=== PATIENT | female | born 1995 | race Caucasian/White ===

== ENCOUNTER 2017-05-24 20:48 | Emergency (ER) | payer OTHER ==
[~2017-05-24] VITALS: Ht 162.6 cm; Wt 104.3 kg
[~2017-05-24 20:48] MED LIST: ACET325T9 PO; CYCL-331 PO; ENOX40DI SQ; Enoxaparin Sodium SQ; FERROUS FUM PO; HYDR-2758 PO; HYDR-971 PO; Hydrocodone Bit/Acetaminophen PO; PNV11TAB PO; PREN1TAB58 PO; PRENATAL VIT PO; [UNRECOGNIZED DRUG - OTHER] PO
--- NOTE | 2017-05-24 20:52 | PHYS DOC ---
Past History Past Medical History: DVT, Other Past Surgical History: Cholecystectomy Smoking: Non-smoker Alcohol Use: Rarely Drug Use: None Adult General Chief Complaint Chief Complaint: dizziness, short of breath [facility] HPI Patient is a 21 year old female who presents with not feeling well over the last 24 hours. She states she feel short of breath when she is up ambulating and feels a tightness in her chest. She states it only happens when she's tried to ambulate a long distance. She's felt lightheaded. She called her primary care physician who states that she likely has a virus. She states yesterday she feel constipated but the days had normal bowel movements. She did just stop taking her Depo shots. She states she could be a chance she is . She denies smoking history. She denies any chest pain or shortness of breath currently, she denies any leg pain or swelling. Review of Systems Review of Systems Constitutional: Denies fever or chills [] Eyes: Denies change in visual acuity, redness, or eye pain [] HENT: Denies nasal congestion or sore throat [] Respiratory: Denies cough, positive shortness of breath with ambulation Cardiovascular: No additional information not addressed in HPI [] GI: Denies abdominal pain, nausea, vomiting, bloody stools or diarrhea [] : Denies dysuria or hematuria [] Musculoskeletal: Denies back pain or joint pain [] Integument: Denies rash or skin lesions [] Neurologic: Denies headache, focal weakness or sensory changes [] Endocrine: Denies polyuria or polydipsia [] Allergies Allergies Allergies Coded Allergies Type Severity Reaction Last Updated Verified Milk Containing Products Allergy Intermediate 02/11/14 Yes iodine Allergy Intermediate 02/11/14 Yes latex Allergy Intermediate 02/11/14 Yes Physical Exam Physical Exam Constitutional: Well developed, well nourished, no acute distress, non-toxic appearance. [] HENT: Normocephalic, atraumatic, bilateral external ears normal, oropharynx moist, no oral exudates, nose normal. [] Eyes: PERRLA, EOMI, conjunctiva normal, no discharge. [] Neck: Normal range of motion, no tenderness, supple, no stridor. [] Cardiovascular:Heart rate regular rhythm, no murmur [] Lungs & Thorax: Bilateral breath sounds clear to auscultation [] Abdomen: Bowel sounds normal, soft, no tenderness, no masses, no pulsatile masses. [] Skin: Warm, dry, no erythema, no rash. [] Back: No tenderness, no CVA tenderness. [] Extremities: No tenderness, no cyanosis, no clubbing, ROM intact, no edema. [] Neurologic: Alert and oriented X 3, normal motor function, normal sensory function, no focal deficits noted. [] Psychologic: Affect normal, judgement normal, mood normal. [] EKG EKG [] Radiology/Procedures Radiology/Procedures [place] [id number] IMAGING REPORT Signed PATIENT: SIRISHA ISSA ACCOUNT: [id number] : 1995 LOCATION: ER AGE: 21 SEX: F EXAM STATUS: REG ER ORD. PHYSICIAN: ANNITA LIMON MD REASON: r/o PE PROCEDURE: CT ANGIOGRAPHY CHEST CT angiogram of the chest with contrast: Reason for examination: Short of air. Elevated d-dimer. History of factor 5. Helical images were obtained through the chest with intravenous administration of 75 cc Omnipaque 300. 3-D MIPS reconstruction was performed in sagittal and coronal planes. The patient had history of iodine allergy and was premedicated for the examination. Exposure: One or more of the following individualized dose reduction techniques were utilized for this examination: 1. Automated exposure control 2. Adjustment of the mA and/or kV according to patient size 3. Use of iterative reconstruction technique. No abnormality seen at the thyroid gland. The trachea and mainstem bronchi show no intraluminal lesions. No abnormality seen at the esophagus. The thoracic aorta shows no aneurysmal dilatation or dissection. The heart size is normal with no pericardial effusion. There is suggestion of a small focal nonocclusive thrombus proximally in the left lower lobe artery which would be consistent with a small pulmonary embolus. No other definite pulmonary emboli identified. Lung massey show no infiltrates or pleural effusions. No abnormality seen at the visualized portion of the liver, spleen, adrenal glands or pancreas. The gallbladder surgically absent. IMPRESSION: Single small nonocclusive thrombus suggested in the proximal left lower lobe artery. No other focal abnormality seen in the chest. Electronically signed by: Rebecca Sylvester MD (05/25/2017 1:21 AM) [facility] DICTATED AND SIGNED BY: REBECCA SYLVESTER MD DATE: 05/25/17 011 CC: ANNITA LIMON MD; LUKAS BARRERA ~ Impressions: Pulmonary embolism Factor V Leiden deficiency UTI Hypokalemia Course & Med Decision Making Course & Med Decision Making Pertinent Labs and Imaging studies reviewed. (See chart for details) test was reported by nursing staff as negative. Patient states she is supposed to be on Xeralto, but hasn't been on for the last 2 days because she ran out of it and she hasn't been by the pharmacy to pick it up. She has a small pulmonary embolism that's nonocclusive. She's being restarted back on Xarelto 20 mg, one dose given in the ER, in addition to her potassium being replaced and one dose of antibiotic for UTI. She received a liter of normal saline and her heart rate improved from low 100s to in the 80s. Her symptoms have resolved. She's being discharged home at this time. Return precautions given. She is instructed follow-up with her primary care physician. She is instructed not to miss any more doses of her Xarelto. Dragon Disclaimer Dragon Disclaimer This chart was dictated in whole or in part using Voice Recognition software in a busy, high-work load, and often noisy Emergency Department environment. It may contain unintended and wholly unrecognized errors or omissions. Departure Departure: Impression: Primary Impression: Pulmonary embolism Disposition: 01 HOME, SELF-CARE Condition: STABLE Referrals: PCP,NO (PCP) Patient Instructions: Pulmonary Embolus Additional Instructions: You have a small blood clot in your left lung. Your given a dose of Xeralto. You will need to get her prescription filled and continue taking it. Very important to not miss any doses. You will also have a small bladder infection that you'll need to have antibiotic for the next 3 days. Your potassium level slightly low and this was also replaced. Giving discharged home. Please follow- up to primary care physician. If you have troubles getting her prescription filled please return back to the ER or call your primary care physician for help. Scripts Sulfamethoxazole/Trimethoprim (BACTRIM 400-80 MG TABLET) 1 Each Tablet 1 TAB PO BID, #6 TAB Prov: ANNITA LIMON MD 05/25/17 Problem Qualifiers Primary Impression: Pulmonary embolism Pulmonary embolism type: other Chronicity: unspecified Acute cor pulmonale presence: without acute cor pulmonale Qualified Codes: I26.99 - Other pulmonary embolism without acute cor pulmonale ANNITA LIMON MD May 24, 2017 20:52
[2017-05-24 22:30] LABS: BASO % 1 % (0-3); EOS # 0.1 x10^3/uL (0.0-0.7); EOS % 1 % (0-3); HEMATOCRIT 37.6 % (36.0-47.0); HEMOGLOBIN 12.9 g/dL (12.0-15.5); LYMPH # 2.1 x10^3/uL (1.0-4.8); LYMPH % 26 % (24-48); MEAN CORPUSCULAR HEMOGLOBIN 27 pg (25-35); MEAN CORPUSCULAR HGB CONC 34 g/dL (31-37); MEAN CORPUSCULAR VOLUME 78 fL (79-100); MONO # 0.9 x10^3/uL (0.0-1.1); MONO % 12 % (0-9); NEUT # 4.8 x10^3uL (1.8-7.7); NEUT % 61 % (31-73); PLATELET COUNT 180 x10^3/uL (140-400); RED CELL DISTRIBUTION WIDTH 14.8 % (11.5-14.5); WHITE BLOOD COUNT 7.9 x10^3/uL (4.0-11.0)
[2017-05-24 22:40] LABS: ALBUMIN 3.6 g/dL (3.4-5.0); ALBUMIN/GLOBULIN RATIO 0.9 (1.0-1.7); CALCIUM 8.5 mg/dL (8.5-10.1); CREATININE 0.6 mg/dL (0.6-1.0); GFR 123.9; POTASSIUM 3.4 mmol/L (3.5-5.1); TOTAL BILIRUBIN 0.3 mg/dL (0.2-1.0); TOTAL PROTEIN 7.7 g/dL (6.4-8.2)
[2017-05-24] MEDS ORDERED: methylPREDNISolone SOD SUCC PF 125 MG/2 ML VIAL. IV ONE (23:30)
[2017-05-24] MEDS ORDERED: FAMOTIDINE 20 MG/2 ML VIAL IVP ONE (23:30)
[2017-05-24] MEDS ORDERED: diphenhydrAMINE 50 MG/ML VIAL IVP ONE (23:30)
[2017-05-24 23:33] LABS: BACTERIA,URINE MOD /HPF (0-FEW); BILIRUBIN,URINE NEG (NEG); CLARITY,URINE CLOUDY; COLOR,URINE YELLOW; GLUCOSE,URINE NEG (NEG); NITRITE,URINE NEG (NEG); RBC,URINE OCC /HPF (0-2); SQUAMOUS EPITHELIAL CELL,UR FEW /LPF; UROBILINOGEN,URINE 0.2 mg/dL (0.2 mg/dL)
[2017-05-24] MEDS ORDERED: IOHEXOL 300 MG/ML 75 ML VIAL. IV ONE (23:45)
[2017-05-25] MEDS ORDERED: IV NORMAL SALINE 1,000ML 1,000 ML IV ONE (00:30)
--- NOTE | 2017-05-25 01:24 | RAD ---
CT angiogram of the chest with contrast: Reason for examination: Short of air. Elevated d-dimer. History of factor 5. Helical images were obtained through the chest with intravenous administration of 75 cc Omnipaque 300. 3-D MIPS reconstruction was performed in sagittal and coronal planes. The patient had history of iodine allergy and was premedicated for the examination. Exposure: One or more of the following individualized dose reduction techniques were utilized for this examination: 1. Automated exposure control 2. Adjustment of the mA and/or kV according to patient size 3. Use of iterative reconstruction technique. No abnormality seen at the thyroid gland. The trachea and mainstem bronchi show no intraluminal lesions. No abnormality seen at the esophagus. The thoracic aorta shows no aneurysmal dilatation or dissection. The heart size is normal with no pericardial effusion. There is suggestion of a small focal nonocclusive thrombus proximally in the left lower lobe artery which would be consistent with a small pulmonary embolus. No other definite pulmonary emboli identified. Lung massey show no infiltrates or pleural effusions. No abnormality seen at the visualized portion of the liver, spleen, adrenal glands or pancreas. The gallbladder surgically absent. IMPRESSION: Single small nonocclusive thrombus suggested in the proximal left lower lobe artery. No other focal abnormality seen in the chest. Electronically signed by: Rebecca Roberson MD (05/25/2017 1:21 AM) [place] [id number]
[2017-05-25 01:43] VITALS: BP 115/64
[2017-05-25] MEDS ORDERED: SULF1TAB23 PO (01:46)
[2017-05-25] MEDS ORDERED: SMZ/TMP 800/160MG TABLET. PO ONE (02:00)
[2017-05-25] MEDS ORDERED: POTASSIUM CHLORIDE 20 MEQ TABLET.ER. PO ONE (02:00)
[2017-05-25] MEDS ORDERED: RIVAROXABAN 10 MG TABLET. PO ONE (02:15)
== END 2017-05-25 02:10 | disposition home or self-care (01) ==
LOC: ER 20:48
DX: I26.99 Other pulmonary embolism without acute cor pulmonale (principal); E87.6 Hypokalemia; N39.0 Urinary tract infection, site not specified; D68.51 Activated protein C resistance; Z90.49 Acquired absence of other specified parts of digestive tract; Z91.041 Radiographic dye allergy status; Z91.040 Latex allergy status; Z91.011 Allergy to milk products
CPT/HCPCS: 36415; 71275; 80053; 81001; 81025; 82550; 84484; 85025; 85379; 87086; 96361; 96374; 96375; 99285; J1200; J2930; Q9967; S0028; J7030

== ENCOUNTER 2017-06-01 09:42 | Emergency (ER) | payer OTHER ==
[~2017-06-01 09:42] MED LIST changes: +SULF1TAB23 PO
[2017-06-01 10:27] LABS: BACTERIA,URINE FEW /HPF (0-FEW); BILIRUBIN,URINE NEG (NEG); CLARITY,URINE HAZY; COLOR,URINE YELLOW; GLUCOSE,URINE NEG (NEG); NITRITE,URINE NEG (NEG); SQUAMOUS EPITHELIAL CELL,UR FEW /LPF; UROBILINOGEN,URINE 0.2 mg/dL (0.2 mg/dL)
--- NOTE | 2017-06-01 10:58 | PHYS DOC ---
General Chief Complaint: dysuria Stated Complaint: cough, dark urine Time Seen by MD: 10:01 Source: patient, family Exam Limitations: no limitations Problems: History of Present Illness Initial Comments Patient is a 21-year-old female who comes to the ED with her significant other both with similar complaints. The 2 of them are seen in different exam rooms but both do give me verbal consent to speak with the other freely. Patient has history of STI she states it was treated. She has had some burning with urination and suprapubic discomfort no fever chills sweats or myalgias no nausea vomiting no bowel changes her appetite has been intact. She denies any pain with intercourse or vaginal discharge and states she has also had a dry cough. She saw her primary care doctor 2 days ago and states she received a good bill of health. She appears to be very nervous and she and her spouse both incriminate the other as possibly passing and STI to them. This was not revealed to me initially only after infection was noted in each of their urine and they had artery received antibiotics. Patient's heart rate is 102 bpm initially however it does resolve after she settles down. She denies any chest pain trouble breathing active bleeding she has history of factor V deficiency and STI. She and her significant other have 4 children together although they have an open relationship and from discussion it appears the have a relationship to procreate and raise children. Otherwise her ED vitals are stable. She had her spouse are vague historians and are not forthcoming until after infection is noted in each his urine and they have received antibiotics. Timing/Duration: unsure Severity: mild Modifying Factors: improves with other Associated Symptoms: cough, other Allergies: Coded Allergies: Milk Containing Products (Verified Allergy, Intermediate, 02/11/14) iodine (Verified Allergy, Intermediate, 02/11/14) latex (Verified Allergy, Intermediate, 02/11/14) Past Medical History Medical History: GERD, other (factor V deficiency, STI) Surgical History: cholecystectomy Family History Significant Family History: no pertinent family hx Social History Smoker: non-smoker Alcohol: none Drugs: none Review of Systems Constitutional: denies chills, denies diaphoresis, denies fever, denies malaise Respiratory: denies cough, denies shortness of breath Cardiovascular: denies chest pain, denies edema, denies palpitations, denies syncope Gastrointestinal: denies abdominal pain, denies diarrhea, denies nausea, denies vomiting Genitourinary: see HPI Musculoskeletal: denies back pain, denies joint swelling, denies neck pain Psychiatric/Neurological: denies headache, denies numbness, denies paresthesia Hematologic/Lymphatic: see HPI Physical Exam General Appearance: WD/WN, no apparent distress (nervous) Eyes: bilateral eye normal inspection, bilateral eye PERRL, bilateral eye EOMI Ear, Nose, Throat: hearing grossly normal, normal ENT inspection Neck: non-tender, supple Respiratory: chest non-tender, normal breath sounds Cardiovascular: normal peripheral pulses, regular rate, rhythm Gastrointestinal: normal bowel sounds, non tender (mild suprapubic tenderness negative Malone negative McBurney no rebound guarding or masses noted bowel sounds are normal), soft Rectal: deferred ( deferred) Back: no CVA tenderness, no vertebral tenderness Extremities: non-tender, normal inspection 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 Patient is treated with Rocephin and Zithromax based upon history and findings with her significant other who is being seen in another exam room. She is agreeable and expresses agreement and understanding with treatment plan. Departure Time of Disposition: 10:57 Disposition: 01 HOME, SELF-CARE Diagnosis: urethritis Condition: GOOD Patient Instructions: Urethritis, Adult Additional Instructions: No sexual activity until follow-up with your doctor. Notify any sexual contacts of the possible need for testing. Have them follow- up with their doctor. Aggressive hydration to prevent dehydration. No driving or operating machinery while under the influence of sedative pain medications. You received Rocephin and Zithromax in the emergency department which should resolve presumed gonococcal or chlamydial infection. You will need to follow-up with your doctor for a recheck to ensure urine infection has cleared and to discuss HIV and other testing. Follow-up with your doctor in 3-5 days. Take these discharge instructions with you to that appointment. Return to ED with new or changing symptoms. PHAM LITTLE DO Jun 01, 2017 10:58
[2017-06-01] MEDS ORDERED: AZITHROMYCIN 1 GM PACKET PO ONE (11:00)
[2017-06-01] MEDS ORDERED: PHENAZOPYRIDINE 100 MG TABLET. PO ONE (11:00)
[2017-06-01] MEDS ORDERED: cefTRIAXone IM 1 GM VIAL IM ONE (11:00)
[2017-06-01 11:25] VITALS: BP 114/67
== END 2017-06-01 11:27 | disposition home or self-care (01) ==
LOC: ER 09:42
DX: N34.2 Other urethritis (principal); K21.9 Gastro-esophageal reflux disease without esophagitis; D68.2 Hereditary deficiency of other clotting factors; Z91.041 Radiographic dye allergy status; Z91.040 Latex allergy status; Z91.011 Allergy to milk products
CPT/HCPCS: 81001; 87086; 96372; 99284; J0456; J0696

== ENCOUNTER 2021-01-28 11:25 | Emergency (ER) | payer MEDICAID, OTHER ==
[~2021-01-28] VITALS: Ht 162.6 cm; Wt 110.5 kg
[~2021-01-28 11:25] MED LIST changes: +HYDR-2155 PO; -HYDR-2758 PO; +HYDR-3165 PO; -HYDR-971 PO
[2021-01-28 12:09] VITALS: BP 114/67
[2021-01-28 12:24] LABS: BASO # 0.1 x10^3/uL (0.0-0.2); BASO % 1 % (0-3); EOS # 0.1 x10^3/uL (0.0-0.7); EOS % 1 % (0-3); HEMATOCRIT 36.7 % (36.0-47.0); HEMOGLOBIN 12.6 g/dL (12.0-15.5); LYMPH # 2.1 x10^3/uL (1.0-4.8); LYMPH % 17 % (24-48); MEAN CORPUSCULAR HEMOGLOBIN 28 pg (25-35); MEAN CORPUSCULAR HGB CONC 34 g/dL (31-37); MEAN CORPUSCULAR VOLUME 83 fL (79-100); MONO # 0.7 x10^3/uL (0.0-1.1); MONO % 5 % (0-9); NEUT # 9.6 x10^3uL (1.8-7.7); NEUT % 77 % (31-73); PLATELET COUNT 189 x10^3/uL (140-400); RED BLOOD COUNT 4.42 x10^6/uL (3.50-5.40); RED CELL DISTRIBUTION WIDTH 14.8 % (11.5-14.5); WHITE BLOOD COUNT 12.5 x10^3/uL (4.0-11.0)
[2021-01-28 12:34] LABS: CALCIUM 9.3 mg/dL (8.5-10.1); CREATININE 0.5 mg/dL (0.6-1.0); POTASSIUM 3.5 mmol/L (3.5-5.1)
[2021-01-28 13:03] LABS: BACTERIA,URINE MANY /HPF (0-FEW); BILIRUBIN,URINE NEG (NEG); CLARITY,URINE TURBID; COLOR,URINE AMBER; GLUCOSE,URINE NEG (NEG); NITRITE,URINE POS (NEG); SQUAMOUS EPITHELIAL CELL,UR MANY /LPF; WBC,URINE >40 /HPF (0-4)
--- NOTE | 2021-01-28 13:18 | RAD ---
EXAM: US OB Limited CLINICAL HISTORY: Reason: VAG BLEEDING AND CRAMPING COMPARISON: None available. TECHNIQUE: Limited transabdominal ultrasound of the uterus was performed. FINDINGS: NUMBER: Single POSITION: breech PLACENTA: Location: Anterior Cord type: 3 vessel cord. ANATOMY: HEART RATE: 160.00 (beats per minute) COMMENTS: Detailed evaluation of anatomy not performed on this limited ultrasound. Current measurements are: BPD - 4.42 = 19w3d HC -16.85 = 19w3d AC - 13.91 = 19w2d FL - 2.93 = 19w0d Estimated weight: 280 g. ANTONIO: 18.2 cm. MATERNAL ANATOMY CERVIX Length (cm): 4.8 UTERUS: No abnormalities seen. Placenta appears normal without appreciable hemorrhage. OVARIES/ADNEXAE: Ovaries not visualized. No adnexal mass. CUL-DE-SAC: No fluid. HISTORICAL DATES Last menstrual period: 09/16/2020 CALCULATED DATES EGA (LMP): 19 weeks 2 day RAISA (LMP): 06/23/2021 EGA (US): 19 weeks 2 day RAISA (US): 06/22/2021 IMPRESSION: 1. Single living intrauterine in breech position. heart rate 160 bpm. 2. Estimated gestational age by ultrasound 19 weeks, 2 days. RAISA by ultrasound 06/22/2021. Electronically signed by: Stacy Contreras MD (01/28/2021 1:15 PM) [id number]
[2021-01-28] MEDS ORDERED: CEPH500C PO (13:23)
--- NOTE | 2021-01-28 13:23 | PHYS DOC ---
Past History Past Medical History: Other Additional Past Medical Histor: factor five Past Surgical History: Cholecystectomy, Other Smoking: Non-smoker Alcohol Use: None Drug Use: None Adult General Chief Complaint Chief Complaint: VAGINAL BLEEDING HPI HPI Patient is a 25-year-old G9, P4 female who "thinks" she is 20 weeks based on first day of last menstrual period September 16 presenting for vaginal bleeding. States she found out incidentally about during an ER visit several weeks ago. Has been living at a assisted house ever since and has established with outpatient EMERGENCY OPERATOR for which patient reports having good access to care. States she had "a lot" of bright red vaginal bleeding yesterday that was spontaneous in nature without any known inciting event, trauma or other exposure. This was painless, only sided slight dysuria. Reports today having some mild spotting and only had to change her pad once. Nonetheless bleeding concerned her prompting her to come in for evaluation Review of Systems Review of Systems Fourteen body systems of review of systems have been reviewed. See HPI for pertinent positives and negative responses, other oliveros all other systems are negative, non-pertinent or non-contributory Allergies Allergies Allergies Coded Allergies Type Severity Reaction Last Updated Verified Milk Containing Products Allergy Intermediate 02/11/14 Yes iodine Allergy Intermediate 02/11/14 Yes latex Allergy Intermediate 02/11/14 Yes Physical Exam Physical Exam Constitutional: Well developed, well nourished, no acute distress, non-toxic appearance. HENT: Normocephalic, atraumatic, bilateral external ears normal, oropharynx moist with poor dentition, no oral exudates, nose normal. Eyes: PERRLA, EOMI, conjunctiva normal, no discharge. Neck: Normal range of motion, no tenderness, supple, no stridor. Cardiovascular: Heart rate regular, sinus rhythm, no murmurs rubs or gallops Lungs & Thorax: Bilateral breath sounds clear to auscultation Abdomen: Bowel sounds normal, soft and gravid, no tenderness, no masses, no pulsatile masses. Nonsurgical abdomen, no peritoneal signs Skin: Warm, dry, no erythema, no rash. Back: No tenderness, no CVA tenderness. Extremities: No tenderness, no cyanosis, no clubbing, ROM intact, no edema. Pain patch present on left upper extremity Neurologic: Alert and oriented X 3, grossly normal motor & sensory function, no focal deficits noted. Psychologic: Affect normal, judgement normal, mood normal. Current Patient Data Vital Signs Vital Signs Date Time Temp Pulse Resp B/P (MAP) Pulse Ox O2 Delivery O2 Flow Rate FiO2 01/28/21 12:09 114/67 (83) Vital Signs Date Time Temp Pulse Resp B/P (MAP) Pulse Ox O2 Delivery O2 Flow Rate FiO2 01/28/21 12:09 114/67 (83) Lab Results Laboratory Tests Test 01/28/21 12:06 01/28/21 12:11 White Blood Count 12.5 x10^3/uL (4.0-11.0) H Red Blood Count 4.42 x10^6/uL (3.50-5.40) Hemoglobin 12.6 g/dL (12.0-15.5) Hematocrit 36.7 % (36.0-47.0) Mean Corpuscular Volume 83 fL (79-100) Mean Corpuscular Hemoglobin 28 pg (25-35) Mean Corpuscular Hemoglobin Concent 34 g/dL (31-37) Red Cell Distribution Width 14.8 % (11.5-14.5) H Platelet Count 189 x10^3/uL (140-400) Neutrophils (%) (Auto) 77 % (31-73) H Lymphocytes (%) (Auto) 17 % (24-48) L Monocytes (%) (Auto) 5 % (0-9) Eosinophils (%) (Auto) 1 % (0-3) Basophils (%) (Auto) 1 % (0-3) Neutrophils # (Auto) 9.6 x10^3uL (1.8-7.7) H Lymphocytes # (Auto) 2.1 x10^3/uL (1.0-4.8) Monocytes # (Auto) 0.7 x10^3/uL (0.0-1.1) Eosinophils # (Auto) 0.1 x10^3/uL (0.0-0.7) Basophils # (Auto) 0.1 x10^3/uL (0.0-0.2) Maternal Serum HCG Beta Subunit 56324 mIU/mL (0-6) H Sodium Level 140 mmol/L (136-145) Potassium Level 3.5 mmol/L (3.5-5.1) Chloride Level 106 mmol/L (98-107) Carbon Dioxide Level 21 mmol/L (21-32) Anion Gap 13 (6-14) Blood Urea Nitrogen 5 mg/dL (7-20) L Creatinine 0.5 mg/dL (0.6-1.0) L Estimated GFR (Cockcroft-Gault) 148.0 Glucose Level 88 mg/dL (70-99) Calcium Level 9.3 mg/dL (8.5-10.1) Urine Collection Type Unknown Urine Color [place] Urine Clarity Turbid Urine pH 6.0 Urine Specific [place] >=1.030 Urine Protein 100 mg/dl (NEG-TRACE) Urine Glucose (UA) Neg mg/dL (NEG) Urine Ketones (Stick) Neg mg/dL (NEG) Urine Blood Large (NEG) Urine Nitrite Pos (NEG) Urine Bilirubin Neg (NEG) Urine Urobilinogen Dipstick 1.0 mg/dL (0.2 mg/dL) Urine Leukocyte Esterase Small (NEG) Urine RBC 11-20 /HPF (0-2) Urine WBC >40 /HPF (0-4) Urine Squamous Epithelial Cells Many /LPF Urine Bacteria Many /HPF (0-FEW) EKG EKG [] Radiology/Procedures Radiology/Procedures EXAM: US OB Limited CLINICAL HISTORY: Reason: VAG BLEEDING AND CRAMPING COMPARISON: None available. TECHNIQUE: Limited transabdominal ultrasound of the uterus was performed. FINDINGS: NUMBER: Single POSITION: breech PLACENTA: Location: Anterior Cord type: 3 vessel cord. ANATOMY: HEART RATE: 160.00 (beats per minute) COMMENTS: Detailed evaluation of anatomy not performed on this limited ultrasound. Current measurements are: BPD - 4.42 = 19w3d HC -16.85 = 19w3d AC - 13.91 = 19w2d FL - 2.93 = 19w0d Estimated weight: 280 g. ANTONIO: 18.2 cm. MATERNAL ANATOMY CERVIX Length (cm): 4.8 UTERUS: No abnormalities seen. Placenta appears normal without appreciable hemorrhage. OVARIES/ADNEXAE: Ovaries not visualized. No adnexal mass. CUL-DE-SAC: No fluid. HISTORICAL DATES Last menstrual period: 09/16/2020 CALCULATED DATES EGA (LMP): 19 weeks 2 day RAISA (LMP): 06/23/2021 EGA (US): 19 weeks 2 day RAISA (US): 06/22/2021 IMPRESSION: 1. Single living intrauterine in breech position. heart rate 160 bpm. 2. Estimated gestational age by ultrasound 19 weeks, 2 days. RAISA by ultrasound 06/22/2021. Electronically signed by: Stacy Contreras MD (01/28/2021 1:15 PM) [id number] Heart Score C/O Chest Pain: No Risk Factors: Risk Factors: DM, Current or recent (<one month) smoker, HTN, HLP, family history of CAD, obesity. Risk Scores: Risk Factors: DM, Current or recent (<one month) smoker, HTN, HLP, family history of CAD, obesity. Course & Med Decision Making Course & Med Decision Making Discussed with the patient all findings and diagnostic testing. I discussed most likely diagnosis of UTI in female in second trimester. Joint decision made to treat with Keflex. Based on clinical examination and findings today, joint decision to defer any further diagnostic work-up in ER setting. Patient has good access to EMERGENCY OPERATOR in outpatient setting and so, I stressed need for close outpatient follow-up to review today's ER visit. Strict return precautions were also discussed at length with good understanding by patient. Patient voiced understanding and agreement with the plan. Patient knows to come back for repeat evaluation if concerning signs or symptoms present prior to outpatient follow-up. Hemodynamically stable, ambulatory and well-appearing at time of disposition. Dragon Disclaimer Dragon Disclaimer This electronic medical record was generated, in whole or in part, using a voice recognition dictation system. Departure Departure: Impression: Primary Impression: UTI (urinary tract infection) in in second trimester Additional Impressions: and not yet delivered in second trimester Factor 5 Leiden mutation, heterozygous Disposition: HOME / SELF CARE / HOMELESS Condition: STABLE Referrals: PCP,NO (PCP) Patient Instructions: ABCs of , - Second Trimester Scripts Cephalexin (CEPHALEXIN) 500 Mg Capsule 1 CAP PO QID for UTI for 10 Days, #39 CAP Prov: MAGALY SMITH DO 01/28/21 Problem Qualifiers MAGALY SMITH DO Jan 28, 2021 13:23
[2021-01-28] MEDS ORDERED: CEPHALEXIN 250 MG CAPSULE ONE (13:25)
[2021-01-28] MEDS ORDERED: CEPHALEXIN 250 MG CAPSULE PO ONE (13:30)
== END 2021-01-28 13:34 | disposition home or self-care (01) ==
LOC: ER 11:25
DX: O23.42 Unspecified infection of urinary tract in pregnancy, second trimester (principal); O99.112 Other diseases of the blood and blood-forming organs and certain disorders involving the immune mechanism complicating pregnancy, second trimester; D68.51 Activated protein C resistance; Z3A.19 19 weeks gestation of pregnancy; Z91.040 Latex allergy status; Z90.49 Acquired absence of other specified parts of digestive tract
CPT/HCPCS: 36415; 76815; 80048; 81001; 84702; 85025; 87086; 99284-25

== ENCOUNTER 2021-06-08 16:08 | Emergency (ER) | payer MEDICAID ==
[~2021-06-08] VITALS: Ht 162.6 cm; Wt 110.5 kg
[~2021-06-08 16:08] MED LIST changes: +CEPH500C PO
--- NOTE | 2021-06-08 16:45 | EKG ---
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
[2021-06-08 17:18] VITALS: BP 112/60
[2021-06-08 17:31] LABS: BASO % 1 % (0-3); EOS # 0.2 x10^3/uL (0.0-0.7); EOS % 3 % (0-3); HEMATOCRIT 35.8 % (36.0-47.0); HEMOGLOBIN 11.8 g/dL (12.0-15.5); LYMPH # 2.5 x10^3/uL (1.0-4.8); LYMPH % 28 % (24-48); MEAN CORPUSCULAR HEMOGLOBIN 27 pg (25-35); MEAN CORPUSCULAR HGB CONC 33 g/dL (31-37); MEAN CORPUSCULAR VOLUME 82 fL (79-100); MONO # 0.7 x10^3/uL (0.0-1.1); MONO % 8 % (0-9); NEUT # 5.3 x10^3uL (1.8-7.7); NEUT % 60 % (31-73); PLATELET COUNT 205 x10^3/uL (140-400); RED BLOOD COUNT 4.38 x10^6/uL (3.50-5.40); RED CELL DISTRIBUTION WIDTH 14.6 % (11.5-14.5); WHITE BLOOD COUNT 8.7 x10^3/uL (4.0-11.0)
--- NOTE | 2021-06-08 17:39 | PHYS DOC ---
Past History Past Medical History: Other Additional Past Medical Histor: factor five (MARK YOUNG APRN) Past Surgical History: Cholecystectomy, Other (MARK YOUNG APRN) Smoking: Non-smoker Alcohol Use: Rarely Drug Use: None (MARK YOUNG APRN) General Adult EDM: Chief Complaint: POST-OP PROBLEM HPI: HPI: Patient is a 25-year-old female presents with vaginal bleeding. Patient states she delivered a baby via on 05/05. Patient states that today she was at her grandmother's when she started bleeding heavily. Patient states she went through one pad and also one tampon. Patient reports that bleeding has stopped and only had 2 episodes of bleeding. "I came to the emergency room because I got a little dizzy when I was bleeding". Patient denies receiving any care. Patient states that she does have an appointment scheduled for Monday with the OB who delivered her baby. Patient denies abdominal pain. Afebrile. (MARK YOUNG APRN) Review of Systems: Review of Systems: ROS At least 10 ROS systems have been reviewed and are negative except as documented in the HPI. General: Negative except as outlined in HPI above. Skin: Negative except as outlined in HPI above. HEENT: Negative except as outlined in HPI above. Neck: Negative except as outlined in HPI above. Respiratory: Negative except as outlined in HPI above.. Cardiovascular: Negative except as outlined in HPI above. Abdomen: Negative except as outlined in HPI above. : Negative except as outlined in HPI above. Back/MSK: Negative except as outlined in HPI above. Neuro: Negative except as outlined in HPI above. Psych: Negative except as outlined in HPI above. (MARK YOUNG APRN) Allergies: Allergies: Allergies Coded Allergies Type Severity Reaction Last Updated Verified Milk Containing Products Allergy Intermediate 02/11/14 Yes iodine Allergy Intermediate 02/11/14 Yes latex Allergy Intermediate 02/11/14 Yes (MARK YOUNG APRN) Physical Exam: PE: Constitutional: Well developed, well nourished, no acute distress, non-toxic appearance. [] HENT: Normocephalic, atraumatic, bilateral external ears normal, oropharynx moist, no oral exudates, nose normal. [] Eyes: PERRLA, EOMI, conjunctiva normal, no discharge. [] Neck: Normal range of motion, no tenderness, supple, no stridor. [] Cardiovascular:Heart rate regular rhythm, no murmur [] Lungs & Thorax: Bilateral breath sounds clear to auscultation [] Abdomen: Bowel sounds normal, soft, no tenderness, no masses, no pulsatile masses. [] Skin: Warm, dry, no erythema, no rash. [] Back: No tenderness, no CVA tenderness. [] Extremities: No tenderness, no cyanosis, no clubbing, ROM intact, no edema. [] Neurologic: Alert and oriented X 3, normal motor function, normal sensory function, no focal deficits noted. [] Psychologic: Affect normal, judgement normal, mood normal. [] (MARK YOUNG APRN) Current Patient Data: Labs: Laboratory Tests Test 06/08/21 17:12 White Blood Count 8.7 x10^3/uL (4.0-11.0) Red Blood Count 4.38 x10^6/uL (3.50-5.40) Hemoglobin 11.8 g/dL (12.0-15.5) L Hematocrit 35.8 % (36.0-47.0) L Mean Corpuscular Volume 82 fL (79-100) Mean Corpuscular Hemoglobin 27 pg (25-35) Mean Corpuscular Hemoglobin Concent 33 g/dL (31-37) Red Cell Distribution Width 14.6 % (11.5-14.5) H Platelet Count 205 x10^3/uL (140-400) Neutrophils (%) (Auto) 60 % (31-73) Lymphocytes (%) (Auto) 28 % (24-48) Monocytes (%) (Auto) 8 % (0-9) Eosinophils (%) (Auto) 3 % (0-3) Basophils (%) (Auto) 1 % (0-3) Neutrophils # (Auto) 5.3 x10^3uL (1.8-7.7) Lymphocytes # (Auto) 2.5 x10^3/uL (1.0-4.8) Monocytes # (Auto) 0.7 x10^3/uL (0.0-1.1) Eosinophils # (Auto) 0.2 x10^3/uL (0.0-0.7) Basophils # (Auto) 0.0 x10^3/uL (0.0-0.2) Vital Signs: Vital Signs Date Time Temp Pulse Resp B/P (MAP) Pulse Ox O2 Delivery O2 Flow Rate FiO2 06/08/21 17:18 97.9 92 16 112/60 (77) 97 Room Air (MARK YOUNG APRN) EKG: EKG: Sinus rhythm. Heart rate 93 bpm. No STEMI. Read by Dr. Melendez at 1635 [] (MARK YOUNG APRN) Radiology/Procedures: Radiology/Procedures: [] (MARK YOUNG APRN) Heart Score: C/O Chest Pain: No Risk Factors: Risk Factors: DM, Current or recent (<one month) smoker, HTN, HLP, family history of CAD, obesity. Risk Scores: Score 0 - 3: 2.5% MACE over next 6 weeks - Discharge Home Score 4 - 6: 20.3% MACE over next 6 weeks - Admit for Clinical Observation Score 7 - 10: 72.7% MACE over next 6 weeks - Early Invasive Strategies (MARK YOUNG APRN) Course & Med Decision Making: Course & Med Decision Making Pertinent Labs and Imaging studies reviewed. (See chart for details) [] 25-year-old female presents for vaginal bleeding post . Patient states she had 2 episodes of heavy vaginal bleeding and felt lightheaded. denies any vaginal bleeding since this afternoon. EKG shows sinus rhythm. Heart rate 93 bpm. Labs are unremarkable. Patient reports that she has an appointment scheduled for Monday with OB. Discussed return precautions in length. Patient is hemodynamically stable and states she understands discharge instructions. (MARK YOUNG APRN) Dragon Disclaimer: Dragon Disclaimer: This electronic medical record was generated, in whole or in part, using a voice recognition dictation system. (MARK YOUNG APRN) Attending Co-Sign The patient was seen and interviewed as well as examined at the bedside. The chart was reviewed. The case was discussed. Agree with the plan of care. (CECILIA PICKARD DO) Departure Departure: Impression: Primary Impression: Vaginal bleeding Disposition: HOME / SELF CARE / HOMELESS Condition: STABLE Referrals: PCP,SUZIE (PCP) Additional Instructions: You were seen in the emergency room for vaginal bleeding post . All of your labs are unremarkable. Make sure you keep your appointment scheduled for Monday with your OB. Please return to the emergency room if you have worsening symptoms or concerns peer EMERGENCY DEPARTMENT GENERAL DISCHARGE INSTRUCTIONS Thank you for coming to [facility] (ED) today and trusting us with you care. We trust that you had a positivie experience in our Emergency Department. If you wish to speak to the department management, you may call the director at [phone]. YOUR FOLLOW UP INSTRUCTIONS ARE FOLLOWS: 1. Do you have a private Doctor? If you do not have a private doctor, please ask for a resource list of physicians or clinics that may be able to assist you with follow up care. 2. The Emergency Physician has interpreted your x-rays. The X-Ray specialist will also review them. If there is a change in the findings, you will be notified in 48 hours when at all possible. 3. A lab test or culture has been done, your results will be reviewed and you will be notified if you need a change in treatment. ADDITIONAL INSTRUCTIONS AND INFORMATION: 1. Your care today has been supervised by a physician who is specially trained in emergency care. Many problems require more than one evaluation for a complete diagnosis and treatment. We recommend that you schedule your follow up appointment as recommended to ensure complete treatment of you illness or injury. If you are unable to obtain follow up care and continue to have a problem, or if your condition worsens, we recommend that you return to the ED. 2. We are not able to safely determine your condition over the phone nor are we able to give sound medical advice over the phone. For these safety reasons, if you call for medical advice we will ask you to come to the ED for further evaluation. 3. If you have any questions regarding these discharge instructions please call the ED at [phone]. SAFETY INFORMATION: In the interest of safety, wellness, and injury prevention; we encourage you to wear your sealbelt, if you smoke; quite smoking, and we encourage family to use a protective helmet for bicycling and other sporting events that present an increased risk for head injury. IF YOUR SYMPTOMS WORSEN OR NEW SYMPTOMS DEVELOP, OR YOU HAVE CONCERNS ABOUT YOUR CONDITION; OR IF YOUR CONDITION WORSENS WHILE YOU ARE WAITING FOR YOUR FOLLOW UP APPOINTMEN T; EITHER CONTACT YOUR PRIMARY CARE DOCTOR, THE PHYSICIAN WHOSE NAME AND NUMBER YOU WERE GIVEN, OR RETURN TO THE ED IMMEDIATELY. MARK YOUNG APRN Jun 08, 2021 17:38 CECILIA PICKARD DO Jun 09, 2021 05:56
[2021-06-08 17:41] LABS: CREATININE 0.7 mg/dL (0.6-1.0); GFR 100.4; POTASSIUM 4.2 mmol/L (3.5-5.1)
[2021-06-08 17:46] LABS: ALBUMIN 3.2 g/dL (3.4-5.0); ALBUMIN/GLOBULIN RATIO 0.7 (1.0-1.7); TOTAL BILIRUBIN 0.2 mg/dL (0.2-1.0); TOTAL PROTEIN 7.7 g/dL (6.4-8.2)
== END 2021-06-08 18:56 | disposition home or self-care (01) ==
LOC: ER 16:08
DX: N93.8 Other specified abnormal uterine and vaginal bleeding (principal); Z91.040 Latex allergy status; Z90.49 Acquired absence of other specified parts of digestive tract
CPT/HCPCS: 36415; 80053; 85025; 93005; 99284-25